=== PATIENT | male | born 1990 | race Asian ===

== ENCOUNTER 2021-10-02 21:09 | Emergency (ER) | payer OTHER ==
[~2021-10-02] VITALS: Ht 172.7 cm; Wt 65.8 kg
[2021-10-02 22:04] LABS: PLATELET COUNT 271 K/uL (142-355)
[2021-10-02 22:12] LABS: POTASSIUM 3.9 mmol/L (3.6-5.2)
[2021-10-02 22:35] VITALS: BP 133/77; TEMP 97.2
== END 2021-10-02 22:25 | disposition home or self-care (01) ==
LOC: ED 21:09
PROVIDERS: Hospitalist
DX: K27.9 Peptic ulcer, site unspecified, unspecified as acute or chronic, without hemorrhage or perforation (principal)
CPT/HCPCS: 36415; 80053; 81000; 83690; 85027; 99283